=== PATIENT | male | born 1995 | race Caucasian/White ===

== ENCOUNTER 2017-04-10 08:36 | Emergency (ER) | payer OTHER ==
--- NOTE | 2017-04-10 09:47 | ED ---
GI/ HPI - HPI Summary HPI Summary: Pt here w/ fever, fatigue, N/V/D intermittently x 2 weeks. He does not feel anything in particular could have started this (ie. new foods, new beverages, unknown water source, spicy/greasy food, excess NSAID's, trauma, testicular pain /change in anatomy, etc). Admits he was starting to feel better after a week and then ate food that had sat out for a bit. Sx returned shortly after eating this food and a co-worker who consumed same food reported she felt like she had food poisoning. Reports pain is noticeable when he's sleeping at night which results in poor sleep, fatigue in the morning. He also notes waking with nausea and vomiting. Diarrhea some days. Denies hematemesis, hematochezia, coffee ground emesis, dark/tarry stools. Pain is in lower ab - no specific focal area and no bloating, excess gas. Does not feel that moving bowels improves nor exacerbates sx. Eating is difficult at times but reports that by afternoon he's typically feeling better. Has tried tums w/o relief but feels most relief he's had was with eliot chews and Emergen-C. Feels he's lost weight since sx started. Has been urinating more than usual but denies pain and reports he's been "chugging gatorade". No recent travel, camping, etc but is concerned about possible parasite. Currently has what he believes is a hemorrhoid d/t excess diarrhea - tender. NOTE: h/o GERD at age 12 y.o. Took nexium for about 1 year and after that no more med, no more sx. This was triggered by spicy, greasy food. Pt does not recall all test performed but does admit he was worked up for Crohn's. Father w / h/o GI issues. Pt was dx'd at 12 y.o. w/ IBS. Denies new onset stress, change in sleep, etc leading up to sx. Pt specifically states he's always thought of himself as a healthy person - no issues, no meds and overall feels well. - History of Current Complaint Chief Complaint: EDAbdPain Time Seen by Provider: 04/10/17 09:23 Stated Complaint: ABD PAIN, Hx Obtained From: Patient Pain Intensity: 6 - Allergy/Home Medications Allergies/Adverse Reactions: Allergies Allergy/AdvReac Type Severity Reaction Status Date / Time No Known Allergies Allergy Verified 04/21/15 15:43 PMH/Surg Hx/FS Hx/Imm Hx Previously Healthy: Yes Endocrine/Hematology History: Denies: Hx Anticoagulant Therapy, Hx Blood Disorders, Hx Unexplained Bleeding GI History: Reports: Hx Irritable Bowel - took nexium x 1 year at 12 y.o. - no issues since Infectious Disease History: No Infectious Disease History: Denies: Traveled Outside the [place] in Last 30 Days - Family History Known Family History: Positive: Other - dad - GI ISSUES - Social History Occupation: Employed Full-time Lives: With Family Alcohol Use: Occasionally Hx Substance Use: Yes Substance Use Type: Reports: Marijuana Hx Tobacco Use: No Smoking Status (MU): Never Smoked Tobacco Review of Systems Positive: Fever - intermittent, subjective , Fatigue - + weight loss -see HPI Eyes: Negative ENT: Negative Cardiovascular: Negative Negative: Palpitations, Chest Pain Respiratory: Negative Negative: Shortness Of Breath, Cough Positive: Abdominal Pain, Vomiting, Diarrhea, Nausea - see HPI Positive: no symptoms reported. Negative: burning, dysuria, discharge, frequency, flank pain, incontinence Musculoskeletal: Negative Skin: Negative Neurological: Negative Psychological: Normal All Other Systems Reviewed And Are Negative: Yes Physical Exam Triage Information Reviewed: Yes Vital Signs On Initial Exam: Initial Vitals Temp Pulse Resp BP Pulse Ox 98.1 F 75 16 138/69 100 04/10/17 08:42 04/10/17 08:42 04/10/17 08:42 04/10/17 08:42 04/10/17 08:42 Vital Signs Reviewed: Yes Appearance: Positive: Well-Appearing, No Pain Distress, Well-Nourished Skin: Positive: Warm, Dry - buttock w/ dry, erythematous skin (pt reports this is baseline); hypopigmented spots on shoulders/upper back (pt reports tinea versicolor - no tx at present) Head/Face: Positive: Normal Head/Face Inspection Eyes: Positive: Normal, EOMI, Conjunctiva Clear - anicteric sclera ENT: Positive: Hearing grossly normal, Pharynx normal - mucosa moist, pink Neck: Positive: Supple, Nontender - no gross thyromegaly Respiratory/Lung Sounds: Positive: Clear to Auscultation, Breath Sounds Present. Negative: Rales, Rhonchi, Wheezes Cardiovascular: Positive: Normal, RRR, S1, S2 Abdomen Description: Positive: Nontender, No Organomegaly, Soft, Other: - EDU: engorged/tender external hemorrhoid - no bleeding; internal w/o palpable mass/ bleeding Bowel Sounds: Positive: Present, Hypoactive Musculoskeletal: Positive: Normal, Strength/ROM Intact Neurological: Positive: Normal, Sensory/Motor Intact, Alert, Oriented to Person Place, Time, CN Intact II-III Psychiatric: Positive: Normal - concerned but cooperative - [place] Coma Scale Coma Scale Total: 15 Diagnostics - Vital Signs Vital Signs Temp Pulse Resp BP Pulse Ox 04/10/17 08:45 98.1 F 77 16 138/69 100 04/10/17 08:42 98.1 F 75 16 138/69 100 - Laboratory Result Diagrams: 04/10/17 10:20 04/10/17 10:20 Lab Statement: Any lab studies that have been ordered have been reviewed, and results considered in the medical decision making process. Re-Evaluation - Re-Evaluation First Eval Change: Improved - nausea resolved and feels great - no pain GIGU Course/Dx - Course Course Of Treatment: Pt presents w/ 2 weeks of intermittent GI issues (see HPI) . Initially denies changes in lifestyle habits prior to onset, but after checking back in, he admits to high stress w/ leaving job and moving soon. Admits stress has always upset his bowels in the past and this may be same issue currently. Also realized the one day he felt good, he did not have coffee or chocolate and last night/this morning had both. Sx improved 100% with zofran and he would like to try lifestyle changes as well as PPI for 2 weeks. Agrees to f/u w/ PCP and return to ED if danger s/sx present. - Diagnoses Provider Diagnoses: IBS (irritable bowel syndrome), GERD (gastroesophageal reflux disease), Stress Discharge - Discharge Plan Condition: Stable Disposition: HOME Prescriptions: Omeprazole CAP* [Prilosec CAP* 20 MG] 20 mg PO BEDTIME #14 cap. Ondansetron ODT TAB* [Zofran 4 MG Odt TAB*] 4 mg PO Q8H PRN #9 tab.odt PRN Reason: Nausea Patient Education Materials: Irritable Bowel Syndrome (ED), Gastroesophageal Reflux Disease (ED) Referrals: [facility] [Primary Care Provider] - Additional Instructions: You appear to have improved here today with anti-nausea medicine. It was also decided you have been under stress which triggers GI issue for you. Please avoid stimulants (ie. coffee, chocolate, etc) and may start PPI for 2 weeks. It was also discussed that you may try to reduce stress/implement coping mechanisms to reduce stress to reduce symptoms. Follow-up with PCP at the end of the week to report updates. Furthermore, if stool culture is positive, you will receive a phone call regarding treatment options. *If you develop fever, chills, worse abdominal pain, intractable vomiting or diarrhea despite treatments offered today, return to ED
[2017-04-10] MEDS ORDERED: Ondansetron INJ* 2 MG/ML VIAL IV ONE (09:59)
[2017-04-10] MEDS ORDERED: NS 0.9% 1000 ML* 1,000 ML IV ONE (09:59)
[2017-04-10 10:14] LABS: Urine Bilirubin Negative (Negative); Urine Glucose Negative (Negative); Urine Nitrite Negative (Negative)
[2017-04-10 10:47] LABS: Hematocrit 47 % (42-52); Hemoglobin 15.7 g/dl (14.0-18.0); Mean Corpuscular HGB Conc 33 g/dl (31-36); Mean Corpuscular Hemoglobin 28 pg (27-31); Mean Corpuscular Volume 85 fL (80-94); Mean Platelet Volume 7 um3 (7.4-10.4); Red Blood Count 5.58 10^6/ul (4.0-5.4); Red Cell Distribution Width 14 % (10.5-15); White Blood Count 8.1 10^3/ul (3.5-10.8)
[2017-04-10 11:02] LABS: ALT 66 U/L (7-52); AST 38 U/L (13-39); Albumin 4.8 g/dL (3.2-5.2); Alkaline Phosphatase 32 U/L (34-104); Amylase 37 U/L (29-103); Anion Gap 6 mmol/L (2-11); BUN/Creatinine Ratio 11.1 (8-20); Blood Urea Nitrogen 12 mg/dL (6-24); C Reactive Protein < 1.00 mg/L (< 5.00); CO2 Carbon Dioxide 29 mmol/L (22-32); Calcium 9.5 mg/dL (8.6-10.3); Chloride 104 mmol/L (101-111); EGFR Non-African American 85.5 (>60); Globulin 2.4 g/dL (2-4); Glucose 85 mg/dL (70-100); Lipase 21 U/L (11.0-82.0); Magnesium 2.3 mg/dL (1.9-2.7); Potassium 3.9 mmol/L (3.5-5.0); Sodium 139 mmol/L (133-145); Total Protein 7.2 g/dL (6.4-8.9)
[2017-04-10] MEDS ORDERED: Lidocaine 2% VISCOUS* 15 ML UDC PO ONE (11:57)
[2017-04-10] MEDS ORDERED: Al Hydrox/Mg Hydrox/Simet LIQ* 30 ML UDC PO ONE (11:57)
[2017-04-10 12:15] LABS: Erythrocyte Sed Rate 6 mm/Hr (0-14)
[2017-04-10 12:40] VITALS: BP 118/75
== END 2017-04-10 12:44 | disposition home or self-care (01) ==
LOC: ED 08:36
DX: K58.0 Irritable bowel syndrome with diarrhea (principal); K21.9 Gastro-esophageal reflux disease without esophagitis; R50.9 Fever, unspecified; R10.9 Unspecified abdominal pain; R11.2 Nausea with vomiting, unspecified; F43.9 Reaction to severe stress, unspecified
CPT/HCPCS: 36415; 80053; 81003; 82150; 82272; 83605; 83690; 83735; 85025; 85652; 86140; 87045; 87046; 87177; 87209; 87328; 87329; 87899; 96374; 99283; A9270-GY; J2405